=== PATIENT | female | born 1990 | race Hispanic/Latino ===

== ENCOUNTER 2018-09-08 16:17 | Emergency (ER) | payer OTHER ==
[~2018-09-08] VITALS: Ht 152.4 cm; Wt 72.6 kg
[2018-09-08] MEDS ORDERED: DEXAMETHASONE SOD PHOS 10 MG/1 ML VIAL IM ONE (17:15)
--- NOTE | 2018-09-08 18:23 | Diagnostic Imaging Report ---
NECK SOFT TISSUE X-RAY - 2 VIEWS HISTORY: ^PAIN, FEELS LIKE SOMETHING IS STUCK ^[id number] ^[id number] COMPARISON: None available. FINDINGS: Bones: No acute displaced fracture. Osseous alignment is within normal limits. Joints: The joint spaces are well-maintained. Soft tissues: The soft tissues appear unremarkable. IMPRESSION: No radiopaque foreign body overlying the neck or upper chest. Signed by: Dr. Chuyita Angel M.D. on 09/08/2018 6:19 PM
[2018-09-08] MEDS ORDERED: TYLENOL WITH C1 EACH PO (21:11)
[2018-09-08 21:15] VITALS: BP 123/75
== END 2018-09-08 21:17 | disposition home or self-care (01) ==
LOC: ER 16:17
DX: J02.9 Acute pharyngitis, unspecified (principal); R07.0 Pain in throat
CPT/HCPCS: 70360; 99283; J1100